=== PATIENT | female | born 1985 | race Caucasian/White ===

== ENCOUNTER → 2020-09-19 | Outpatient (CLI) | payer BC | END | disposition home or self-care (01) | LOC: STAR 14:51 | PROVIDERS: ATTEND Orthopaedic Surgery | DX: Z20.828 Contact with and (suspected) exposure to other viral communicable diseases (principal); S43.432A Superior glenoid labrum lesion of left shoulder, initial encounter; X58.XXXA Exposure to other specified factors, initial encounter; Y93.89 Activity, other specified; Y92.89 Other specified places as the place of occurrence of the external cause; Y99.8 Other external cause status | CPT/HCPCS: 87635 ==

== ENCOUNTER 2020-09-25 07:51 | Day surgery (SDC) | payer BC ==
[~2020-09-25] VITALS: Ht 177.8 cm; Wt 92.6 kg
[2020-09-25 08:39] VITALS: BP 119/81
[2020-09-25 08:48] LABS: HCG UR SG 1.018 (1.003-1.030)
[2020-09-25] MEDS ORDERED: LACTATED RINGERS 1,000 ML IV SCH (09:00)
[2020-09-25] MEDS ORDERED: CHLORHEXIDINE 15 ML UDC MM ONE (09:00)
[2020-09-25] MEDS ORDERED: NEOSPORIN OINT, 15GM ONE (09:47)
[2020-09-25] MEDS ORDERED: EPINEPHRINE 1 MG/ML, 1ML ONE (09:54)
[2020-09-25] MEDS ORDERED: BUPIVACAINE/PF 0.25% ONE (09:54)
[2020-09-25] MEDS ORDERED: LIDOCAINE 1%, 20ML ONE (09:54)
[2020-09-25] MEDS ORDERED: BUPIVACAINE/PF-EPI 0.5% 1:200K ONE (09:55)
[2020-09-25] MEDS ORDERED: PROMETHAZINE 25 MG/ML, 1ML IVPush PRN (10:00)
[2020-09-25] MEDS ORDERED: LABETALOL 5MG/ML, 20ML IV PRN (10:00)
[2020-09-25] MEDS ORDERED: ACETAMINOPHEN 325 MG TABLET PO PRN (10:00)
[2020-09-25] MEDS ORDERED: HALOPERIDOL 5 MG/ML IV PRN (10:00)
[2020-09-25] MEDS ORDERED: FENTANYL PF 100 MCG/2ML IV PRN (10:00)
[2020-09-25] MEDS ORDERED: hydrALAzine 20 MG/ML, 1ML IV PRN (10:00)
[2020-09-25] MEDS ORDERED: OXYcodone 5 MG/5 ML ORAL.SOL UDC PO PRN (10:00)
[2020-09-25] MEDS ORDERED: morphine SULFATE 10 MG/ML, 1ML IVPush PRN (10:00)
[2020-09-25] MEDS ORDERED: HYDROmorphone 1 MG/ML, 1ML INJ IVPush PRN (10:00)
[2020-09-25] MEDS ORDERED: MEPERIDINE/PF 25MG/0.5ML IVPush PRN (10:00)
[2020-09-25] MEDS ORDERED: BUPIVACAINE LIPOSOME/PF 10ML INFIL ONE (10:11)
[2020-09-25] MEDS ORDERED: DEXAMETHASONE 4 MG/ML, 1ML ONE (10:14)
[2020-09-25] MEDS ORDERED: ROCURONIUM 10 MG/ML,10ML ONE (10:14)
[2020-09-25] MEDS ORDERED: PROPOFOL 10 MG/ML, 20ML ONE (10:14)
[2020-09-25] MEDS ORDERED: BUPIVACAINE/PF 0.5% ONE (10:14)
[2020-09-25] MEDS ORDERED: NEOSTIGMINE 1 MG/ML, 10ML ONE ×2 (10:14)
[2020-09-25] MEDS ORDERED: CEFAZOLIN 1,000 MG ONE (10:14)
[2020-09-25] MEDS ORDERED: FENTANYL PF 100 MCG/2ML ONE (10:14)
== END 2020-09-25 14:50 | disposition home or self-care (01) ==
LOC: OUT 07:51
PROVIDERS: ATTEND Orthopaedic Surgery
DX: S43.432A Superior glenoid labrum lesion of left shoulder, initial encounter (principal); M24.412 Recurrent dislocation, left shoulder; G89.18 Other acute postprocedural pain; Z87.891 Personal history of nicotine dependence; Z88.0 Allergy status to penicillin; Z88.2 Allergy status to sulfonamides; Z82.61 Family history of arthritis; Z82.49 Family history of ischemic heart disease and other diseases of the circulatory system; X58.XXXA Exposure to other specified factors, initial encounter; Y93.89 Activity, other specified; Y92.89 Other specified places as the place of occurrence of the external cause; Y99.8 Other external cause status
CPT/HCPCS: 29806; 64415; 81025; C1713; J0690; J1100; J2704; J2710; J3010; J7120; J0171; J2250; J2405